=== PATIENT | male | born 1970 | race Two or more races ===

== ENCOUNTER 2018-11-10 09:30 | Inpatient (IN) | payer OTHER ==
[~2018-11-10] VITALS: Ht 172.7 cm; Wt 78.5 kg
[2018-11-10] MEDS ORDERED: BENICAR40 MG PO (13:55)
[2018-11-19] MEDS ORDERED: INTESTINEX680 M1 PO (13:10)
[2018-11-19] MEDS ORDERED: OXYC1TAB9 PO (13:10)
== END 2018-11-19 13:53 | disposition home or self-care (01) | DRG 330 ==
LOC: SURH 11-16 07:20 → O/R 11-16 07:20 → SURH 11-16 09:30
PROVIDERS: ADMIT Surgery
PROC: 0DJD8ZZ Inspection of Lower Intestinal Tract, Via Natural or Artificial Opening Endoscopic (ICD-10-PCS; 2018-11-16)
PROC: 0DTN4ZZ Resection of Sigmoid Colon, Percutaneous Endoscopic Approach (ICD-10-PCS; principal; 2018-11-16 19:45)
DX: K57.32 Diverticulitis of large intestine without perforation or abscess without bleeding (principal); D62 Acute posthemorrhagic anemia; I11.9 Hypertensive heart disease without heart failure; N20.0 Calculus of kidney